=== PATIENT | female | born 1995 | race Caucasian/White ===

== ENCOUNTER 2016-04-16 23:37 | Emergency (ER) | payer OTHER ==
[2016-04-17 00:45] VITALS: BP 115/70; PULSE 71; TEMP 97.8; BMI 23.9
[2016-04-17] MEDS ORDERED: morphine CARPU-JECT 4 MG/1 ML DISP.SYRIN IVPUSH ONE (01:39)
[2016-04-17] MEDS ORDERED: METOCLOPRAMIDE HCL INJECTION 10 MG/2 ML VIAL IVPB ONE (01:39)
[2016-04-17] MEDS ORDERED: SODIUM CHLORIDE 1,000 ML IV STA (01:39)
[2016-04-17] MEDS ORDERED: METOCLOPRAMIDE HCL INJECTION 10 MG/2 ML VIAL ONE (02:00)
[2016-04-17] MEDS ORDERED: morphine CARPU-JECT 4 MG/1 ML DISP.SYRIN ONE (02:00)
--- NOTE | 2016-04-17 02:03 | PDOC ---
History of Present Illness - General Chief Complaint: Pain, Acute Stated Complaint: ABDOMINAL PAIN, NAUSEA Time Seen by Provider: 04/17/16 00:48 History Source: Patient Exam Limitations: No Limitations - History of Present Illness Travel History: No Initial Comments: 04/17/16 01:58 21yo Female patient presents to ED c/o abd pain. Patient states she was recently diagnosed with "bad gallbladder" via Hida Scan 1 month ago. She reports that she was evaluated by Dr. Palmer (GI) 6 weeks ago, and is unsure of the plan going forward, but stated he does not want to do surgery because Im to young. Patient was put on Cipro to see if symptoms resolved. She state prior to symptoms presentation, she had a turkey sandwich around 1pm with no problem then epigastric pain began. She denies any other complaints at this time. Timing/Duration: reports: getting worse Quality: reports: moderate, stabbing Abdominal Pain Onset Location: reports: epigastric Pain Radiation: reports: no radiation Activities at Onset: reports: eating Treatment Prior to Arrive: improves with: analgesics Aggravating Factors: improves with: Eating Alleviating Factors: improves with: Rest Past History - Travel Traveled outside of the country in the last 30 days: No Close contact w/someone who was outside of country & ill: No - Past Medical History Allergies/Adverse Reactions: Allergies Allergy/AdvReac Type Severity Reaction Status Date / Time No Known Allergies Allergy Verified 04/17/16 00:42 Home Medications: Ambulatory Orders Folic Acid 1 mg PO DAILY 04/17/16 LamoTRIgine [LaMICtal] 150 mg PO HS 04/17/16 Lamotrigine [Lamictal] 200 mg PO DAILY 04/17/16 Levetiracetam [Keppra -] 500 mg PO HS 04/17/16 Levetiracetam [Keppra] 250 mg PO DAILY 04/17/16 Methylphenidate HCl [Concerta] 75 mg PO DAILY 04/17/16 Oxycodone HCl/Acetaminophen [Endocet 7.5-325 mg Tablet] 1 each PO Q6H PRN #20 tablet MDD 4 tabs 04/17/16 Topiramate [Topamax] 50 mg PO HS 04/17/16 Seizures: Yes - Psycho/Social/Smoking Cessation Hx Suicidal Ideation: No Smoking History: Never smoked Have you smoked in the past 12 months: No Information on smoking cessation initiated: No Hx Alcohol Use: No Drug/Substance Use Hx: No Abd/GI Specific PMHX - Complaint Specific PMHX Colitis: No Diverticulitis: No Gall Bladder Disease: Yes GERD: No Hepatitis: No Irritable Bowel Synd (IBS): No Pancreatitis: No GI Ulcer Disease: No Review of Systems - Review of Systems Able to Perform ROS?: Yes Is the patient limited Khmer proficient: No Constitutional: No: Chills, Fever HEENTM: No: Ear Pain Respiratory: No: Cough, Stridor, Wheezing Cardiac (ROS): No: Chest Pain, Palpitations, Syncope ABD/GI: Yes: Other (Abd Pain). No: Diarrhea, Nausea, Poor Appetite, Poor Fluid Intake, Vomiting : No: Burning, Dysuria, Frequency, Flank Pain, Hematuria, Pain, Urgency Musculoskeletal: No: Back Pain Integumentary: No: Bruising, Pruritus, Rash Neurological: Yes: Seizure. No: Headache, Numbness, Paresthesia, Tingling, Tremors, Weakness, Dizziness Psychiatric: No: Stressors, Change in Appetite All Other Systems: Reviewed and Negative *Physical Exam - Vital Signs Last Vital Signs Temp Pulse Resp BP Pulse Ox 97.8 F 71 18 115/70 98 04/17/16 00:43 04/17/16 00:43 04/17/16 00:43 04/17/16 00:43 04/17/16 00:43 - Physical Exam General Appearance: Yes: Nourished, Appropriately Dressed. No: Apparent Distress, Mild Distress, Moderate Distress, Severe Distress HEENT: positive: EOMI, GEOVANNY, Normal ENT Inspection, Normal Voice, Symmetrical Neck: positive: Trachea midline, Supple. negative: Stridor, Lymphadenopathy (R) , Lymphadenopathy (L) Respiratory/Chest: positive: Lungs Clear, Normal Breath Sounds. negative: Respiratory Distress, Accessory Muscle Use, Labored Respiration, Rapid RR, Decreased Breath Sounds, Rhonchi, Stridor, Wheezing Cardiovascular: positive: Regular Rhythm, Regular Rate. negative: Edema, JVD, Tachycardia Gastrointestinal/Abdominal: positive: Tender, Flat, Soft, Increased Bowel Sounds , Tenderness (Epigastric tenderness on examination during deep palpation. Neg Strickland's) Musculoskeletal: positive: Normal Inspection. negative: CVA Tenderness Extremity: positive: Normal Capillary Refill, Normal Inspection, Normal Range of Motion. negative: Swelling Integumentary: positive: Normal Color, Dry, Warm. negative: Hives, Rash Neurologic: positive: district ranger II-XII NML intact, Fully Oriented, Alert, Normal Mood/ Affect, Normal Response ED Treatment Course - LABORATORY CBC & Chemistry Diagram: 04/17/16 02:19 04/17/16 03:45 Progress Note - Progress Note Progress Note: Patient reports symptoms improved. Labs show no acute changes. Patient to follow up with GI specialist Wednesday as scheduled. *DC/Admit/Observation/Transfer Diagnosis at time of Disposition: Abdominal pain Qualifiers: Abdominal location: epigastric Qualified Code(s): R10.13 - Epigastric pain - Discharge Dispostion Disposition: HOME Condition at time of disposition: Stable Admit: No - Prescriptions Prescriptions: Oxycodone HCl/Acetaminophen [Endocet 7.5-325 mg Tablet] 1 each PO Q6H PRN #20 tablet MDD 4 tabs PRN Reason: Severe Pain - Patient Instructions Printed Discharge Instructions: DI for Cholecystectomy, DI for HIDA Scan, DI for General Gallbladder Conditions Additional Instructions: FOLLOW UP WITH YOUR GI DOCTOR ON WEDNESDAY SCHEDULED. TAKE MEDICATIONS PRESCRIBED. DO NOT DRIVE, DRINK ALCOHOL, OR OPERATE HEAVY MACHINERY WHILE TAKING ENDOCET. RETURN IF SYMPTOMS WORSEN OR ANY CONCERNS FOR FURTHER EVALUATION. Print Language: PAPUA [place]
[2016-04-17 02:38] LABS: BASOPHIL 0.4 % (0-2.0); MCH 31.5 pg (25.7-33.7); MCHC 33.1 g/dl (32.0-36.0); MEAN CELL VOLUME 95.1 fl (80-96); MEAN PLT VOLUME 9.8 fl (7.5-11.1); PLATELET COUNT 233 K/MM3 (134-434); RDW 12.1 % (11.6-15.6); WHITE BLOOD COUNT 6.5 K/mm3 (4.0-10.0)
[2016-04-17 03:02] LABS: URINE APPEARANCE CLEAR; URINE BILIRUBIN NEGATIVE (NEGATIVE); URINE BLOOD NEGATIVE (NEGATIVE); URINE COLOR STRAW; URINE GLUCOSE (UA) NEGATIVE (NEGATIVE); URINE KETONE NEGATIVE (NEGATIVE); URINE LEUK ESTERASE NEGATIVE (NEGATIVE); URINE NITRITE NEGATIVE (NEGATIVE); URINE PROTEIN NEGATIVE (NEGATIVE); URINE UROBILINOGEN NEGATIVE E.U./dl (0.2-1.0)
--- NOTE | 2016-04-17 03:27 | PDOC ---
[id number] 04/17/16 00:43 04/17/16 00:43 04/17/16 00:43 04/17/16 00:43 04/17/16 00:43 ED Treatment Course - LABORATORY CBC & Chemistry Diagram: 04/17/16 02:19 04/17/16 03:45 - ADDITIONAL ORDERS Additional order review: Laboratory Results 04/17/16 04/17/16 02:19 02:19 Sodium Cancelled Potassium Cancelled Chloride Cancelled Carbon Dioxide Cancelled Anion Gap Cancelled BUN Cancelled Creatinine Cancelled Random Glucose Cancelled Calcium Cancelled Total Bilirubin Cancelled Direct Bilirubin Cancelled AST Cancelled ALT Cancelled Alkaline Phosphatase Cancelled Total Protein Cancelled Albumin Cancelled Total Amylase Cancelled Lipase Cancelled Urine Color Straw Urine Appearance Clear Urine pH 7.0 Ur Specific Golden 1.008 Urine Protein Negative Urine Glucose (UA) Negative Urine Ketones Negative Urine Blood Negative Urine Nitrite Negative Urine Bilirubin Negative Urine Urobilinogen Negative Ur Leukocyte Esterase Negative Urine HCG, Qual Negative 04/17/16 02:19 RBC 4.79 MCV 95.1 MCHC 33.1 RDW 12.1 MPV 9.8 Neutrophils % 52.0 Lymphocytes % 38.9 Monocytes % 7.7 Eosinophils % 1.0 Basophils % 0.4 - Medications Given in the ED: ED Medications Discontinued Medications Generic Name Dose Route Start Last Admin Trade Name Freq PRN Reason Stop Dose Admin Sodium Chloride 1,000 mls @ 1,000 mls/hr 04/17/16 01:39 04/17/16 02:52 Normal Saline - IV 04/17/16 02:38 1,000 mls/hr ASDIR STA Administration Metoclopramide HCl 10 mg 04/17/16 01:39 04/17/16 01:55 Reglan Injection - IVPB 04/17/16 01:40 10 mg ONCE ONE Administration Morphine Sulfate 4 mg 04/17/16 01:39 04/17/16 01:55 Morphine Injection - IVPUSH 04/17/16 01:40 4 mg ONCE ONE Administration Medical Decision Making - Medical Decision Making 04/17/16 03:26 agree with care from SASHA Bryant *DC/Admit/Observation/Transfer Diagnosis at time of Disposition: Abdominal pain - Discharge Dispostion Disposition: HOME - Prescriptions Prescriptions: Oxycodone HCl/Acetaminophen [Endocet 7.5-325 mg Tablet] 1 each PO Q6H PRN #20 tablet MDD 4 tabs PRN Reason: Severe Pain - Referrals Referrals: Phan Freire MD [Primary Care Provider] - - Patient Instructions Printed Discharge Instructions: DI for Cholecystectomy, DI for General Gallbladder Conditions, DI for HIDA Scan Additional Instructions: FOLLOW UP WITH YOUR GI DOCTOR ON WEDNESDAY SCHEDULED. TAKE MEDICATIONS PRESCRIBED. DO NOT DRIVE, DRINK ALCOHOL, OR OPERATE HEAVY MACHINERY WHILE TAKING ENDOCET. RETURN IF SYMPTOMS WORSEN OR ANY CONCERNS FOR FURTHER EVALUATION. Print Language: CZECH
[2016-04-17 04:18] LABS: ALBUMIN 3.7 g/dl (3.4-5.0); BILIRUBIN,DIRECT 0.1 mg/dL (0.0-0.2); BILIRUBIN,TOTAL 0.4 mg/dL (0.2-1.0); CALCIUM 8.3 mg/dL (8.5-10.1); CREATININE 0.5 mg/dL (0.55-1.02); TOT PROT 6.2 g/dl (6.4-8.2)
== END 2016-04-17 04:56 | disposition home or self-care (01) ==
LOC: JER 23:37
PROC: 3E033GC Introduction of Other Therapeutic Substance into Peripheral Vein, Percutaneous Approach (ICD-10-PCS; principal; 2016-04-16)
PROC: 3E033NZ Introduction of Analgesics, Hypnotics, Sedatives into Peripheral Vein, Percutaneous Approach (ICD-10-PCS; 2016-04-16)
PROC: 3E0337Z Introduction of Electrolytic and Water Balance Substance into Peripheral Vein, Percutaneous Approach (ICD-10-PCS; 2016-04-16)
DX: R10.13 Epigastric pain (principal)
CPT/HCPCS: 36415; 80048; 80076; 81003; 84703; 85025; 99282-25

== ENCOUNTER 2016-05-02 20:00 | Day surgery (SDC) | payer OTHER ==
[2016-05-02 19:20] VITALS: BMI 23.3
--- NOTE | 2016-05-02 19:28 | PDOC ---
History of Present Illness - General History Source: Patient Exam Limitations: No Limitations - History of Present Illness Initial Comments: 05/02/16 19:33 The patient is a 21 year old female, sent by Dr. Robles, who presents to the ED with complaints of nausea for one day and abdominal pain since earlier today. The patient reports one episode of vomiting last night. Dr. Robles sent the patient to the ED for admission. Denies fevers or chills. Denies chest pain or shortness of breath. Denies diarrhea. Denies any other symptoms. PAST MEDICAL HISTORY: gallstones (scheduled for a cholecystectomy on 05/22/16), epilepsy (last seizure was 5 years ago) and migraines PAST SURGICAL HISTORY: no significant history FAMILY HISTORY: no pertinent history SOCIAL HISTORY: Pt lives with family and is employed. MEDICATIONS: reviewed ALLERGIES: As per nursing notes General: No fevers or chills, no weakness, no weight loss HEENT: No change in vision. No sore throat,. No ear pain CardioVascular: No chest pain or shortness of breath Respiratory:No cough, or wheezing. Gastrointestinal: + nausea, vomiting, abdominal pain. no diarrhea or constipation, No rectal bleeding Genitourinary: No dysuria, hematuria, or frequency Musculoskeletal: No joint or muscle pain or swelling Neurologic: No headache, vertigo, dizziness or loss of consciousness Psychiatric: nor depression Skin: No rashes or easy bruising Endocrine: no increased thirst or abnormal weight change Allergic: no skin or latex allergy All other systems reviewed and normal General:+ appears mildly discomfortable. Well-nourished well-developed individual HEENT: Throat: Normal, tonsils normal, no erythema or exudate Neck: Supple, no meningeal signs, no lymphadenopathy Eyes::Pupils equal reactive and round, extraocular motion intact Chest: Nontender to palpation Cardiac: S1-S2 normal, regular rate and rhythm, no murmurs rubs or gallops Respiratory: Lungs clear to auscultation bilateral Abdomen: + tenderness on palpation to the epigastric region and right upper quadrant. Soft, nondistended, normal bowel sounds Flank: + mild tenderness in the right upper flank region Extremities: Warm, dry, no cyanosis, clubbing, or edema Skin: No rashes Neuro: Alert and oriented x3, nonfocal exam, grossly intact, normal gait Psych: Normal mood and affect <Trudy Yu - Last Filed: 05/02/16 19:32> - General History Source: Patient Exam Limitations: No Limitations - History of Present Illness Initial Comments: 05/02/16 20:25 A portion of this note was documented by [email or web address] services under my direction. I have reviewed the details of the note, within reason, and agree with the documentation. The case summary and management plan written by me. Assessment and plan: This is a 21-year-old female who is complaining of right upper quadrant pain. Patient is scheduled for removal of her gallbladder in approximately 3 weeks however over the last 44-48 hours she's developed worsening pain and some nausea. Patient called her surgeon who recommended that she come to the emergency room and be admitted for removal of her gallbladder. Patient will be admitted to a [facility] bed Dr. Robles service Discussed case with Dr. Robles who was accepted patient for admission, and will take patient to the OR in the morning 05/02/16 20:30 <Sultana Tinsley I - Last Filed: 05/02/16 20:31> - General Chief Complaint: Nausea Stated Complaint: ABDOMINAL PAIN & NAUSEA Time Seen by Provider: 05/02/16 19:10 Past History <Trudy Yu - Last Filed: 05/02/16 19:32> - Past Medical History GI Disorders: Yes (BILIARY DISEASE) Seizures: Yes - Immunization History Immunization Up to Date: Yes - Psycho/Social/Smoking Cessation Hx Suicidal Ideation: No Smoking History: Never smoked Have you smoked in the past 12 months: No Hx Alcohol Use: No Drug/Substance Use Hx: No Substance Use Type: None <Sultana Tinsley I - Last Filed: 05/02/16 20:31> - Past Medical History Allergies/Adverse Reactions: Allergies Allergy/AdvReac Type Severity Reaction Status Date / Time No Known Allergies Allergy Verified 05/02/16 19:07 Home Medications: Ambulatory Orders Folic Acid 1 mg PO DAILY 04/17/16 LamoTRIgine [LaMICtal] 150 mg PO HS 04/17/16 Lamotrigine [Lamictal] 200 mg PO DAILY 04/17/16 Levetiracetam [Keppra -] 500 mg PO HS 04/17/16 Levetiracetam [Keppra] 250 mg PO DAILY 04/17/16 Methylphenidate HCl [Concerta] 72 mg PO DAILY 04/17/16 Topiramate [Topamax] 50 mg PO HS 04/17/16 Dexlansoprazole [Dexilant] 60 mg PO DAILY 05/02/16 Dicyclomine HCl 10 mg PO BID 05/02/16 Multivits,Ca,Minerals/Iron/FA [One-A-Day Women's] 1 each PO DAILY 05/02/16 Norgestrel-Ethinyl Estradiol [Cryselle-28 Tablet] 1 each PO DAILY 05/02/16 Ondansetron [Zofran -] 4 mg PO TID 05/02/16 Abd/GI Specific PMHX - Complaint Specific PMHX Colitis: No Diverticulitis: No Gall Bladder Disease: Yes GERD: No Hepatitis: No Irritable Bowel Synd (IBS): No Pancreatitis: No GI Ulcer Disease: No <Sultana Tinsley I - Last Filed: 05/02/16 20:31> *Physical Exam - Vital Signs Last Vital Signs Temp Pulse Resp BP Pulse Ox 98.6 F 86 16 125/88 100 05/02/16 19:07 05/02/16 19:07 05/02/16 19:07 05/02/16 19:07 05/02/16 19:07 <Trudy Yu - Last Filed: 05/02/16 19:32> - Vital Signs Last Vital Signs Temp Pulse Resp BP Pulse Ox 98.6 F 86 16 125/88 100 05/02/16 19:07 05/02/16 19:07 05/02/16 19:07 05/02/16 19:07 05/02/16 19:07 <Sultana Tinsley I - Last Filed: 05/02/16 20:31> ED Treatment Course - LABORATORY CBC & Chemistry Diagram: 05/02/16 19:30 05/02/16 19:30 <Sultana Tinsley I - Last Filed: 05/02/16 20:31> *DC/Admit/Observation/Transfer - Attestations Scribe Attestion: 05/02/16 19:33 Documentation prepared by Trudy Yu, acting as medical billing coordinator for Sultana Tinsley MD <Trudy Yu - Last Filed: 05/02/16 19:32> - Discharge Dispostion Admit: Yes <Sultana Tinsley I - Last Filed: 05/02/16 20:31> Diagnosis at time of Disposition: Recurrent biliary colic Abdominal pain Qualifiers: Abdominal location: right lower quadrant Qualified Code(s): R10.31 - Right lower quadrant pain - Discharge Dispostion Disposition: HOME Condition at time of disposition: Good - Referrals Referrals: Phan Freire MD [Primary Care Provider] -
[2016-05-02 19:56] LABS: BASOPHIL 0.3 % (0-2.0); EOSINOPHIL 0.8 % (0-4.5); MCH 31.5 pg (25.7-33.7); MEAN CELL VOLUME 95.3 fl (80-96); MEAN PLT VOLUME 9.9 fl (7.5-11.1); NEUTROPHILS 60.4 % (42.8-82.8); PLATELET COUNT 183 K/MM3 (134-434); RDW 11.1 % (11.6-15.6); WHITE BLOOD COUNT 5.4 K/mm3 (4.0-10.0)
[~2016-05-02 20:00] MED LIST: ONDANSETRON 4 MG/2 ML VIAL IVPUSH ONE; ONDANSETRON 4 MG/2 ML VIAL ONE; SODIUM CHLORIDE 1,000 ML IV SCH; morphine CARPU-JECT 4 MG/1 ML DISP.SYRIN IVPUSH ONE
[2016-05-02 20:01] LABS: INR 1.17 (0.82-1.09); PROTHROMBIN TIME (PATIENT) 12.8 SEC (10.2-13.0)
[2016-05-02 20:05] LABS: ALBUMIN 4.4 g/dl (3.5-5.0); ALK PHOS 42 U/L (32-92); ANION GAP 8 (8-16); BILIRUBIN,TOTAL 0.4 mg/dl (0.2-1.0); CALCIUM 9.4 mg/dl (8.4-10.2); CO2 22 mmol/L (22-28); CREATININE 0.8 mg/dl (0.6-1.3); GLUCOSE,RANDOM 101 mg/dl (74-106); SGOT/AST 22 U/L (10-42); SGPT/ALT 15 U/L (10-40); TOT PROT 7.2 g/dl (6.4-8.3)
[2016-05-02 20:13] LABS: PH,URINE 5.5 (4.5-8); URINE APPEARANCE Clear; URINE BILIRUBIN Negative (NEGATIVE); URINE BLOOD Trace-lysed (NEGATIVE); URINE COLOR YELLOW; URINE GLUCOSE (UA) Negative (NEGATIVE); URINE KETONE Negative (NEGATIVE); URINE LEUK ESTERASE Negative (NEGATIVE); URINE NITRITE Negative (NEGATIVE); URINE PROTEIN Negative (NEGATIVE); URINE UROBILINOGEN 0.2 E.U/dl (0.2-1.0)
[2016-05-02] MEDS ORDERED: morphine CARPU-JECT 10 MG/1 ML DISP.SYRIN ONE (20:21)
[2016-05-02] MEDS ORDERED: ONDANSETRON 4 MG/2 ML VIAL IVPUSH PRN (21:38)
[2016-05-02] MEDS ORDERED: morphine CARPU-JECT 2 MG/1 ML DISP.SYRIN IVPUSH PRN (21:40)
[2016-05-02] MEDS ORDERED: SODIUM CHLORIDE 0.45% 1,000 ML IV SCH (21:45)
[2016-05-02] MEDS ORDERED: TOPIRAMATE 25 MG TABLET (FP) PO SCH (22:00)
[2016-05-02] MEDS ORDERED: levETIRAcetam 500 MG TABLET (FP) PO SCH (22:00)
[2016-05-02] MEDS ORDERED: lamoTRIgine 100 MG TABLET (FP) PO SCH (22:00)
[2016-05-02] MEDS: DICYCLOMINE HCL 10 MG CAPSULE PO SCH (23:31)
[2016-05-03] MEDS ORDERED: ceFAZolin SODIUM 1 GM VIAL ONE ×2 (08:20→09:06)
[2016-05-03] MEDS ORDERED: BUPIVACAINE HCL/PF 2.5 MG/ML - 30 ML VIAL IJ ONE (08:21)
[2016-05-03] MEDS ORDERED: GENTAMICIN SO4 80 MG/2 ML VIAL ONE (08:21)
[2016-05-03] MEDS ORDERED: POLYMYXIN B SULFATE 500,000 UNIT VIAL ONE (08:21)
[2016-05-03] MEDS ORDERED: ONDANSETRON 4 MG/2 ML VIAL ONE (09:06)
[2016-05-03] MEDS ORDERED: PROPOFOL 20 ML ONE (09:06)
[2016-05-03] MEDS ORDERED: DEXAMETHASONE SOD PHOSPHATE 4 MG/1 ML VIAL ONE (09:06)
[2016-05-03] MEDS ORDERED: ROCURONIUM BROMIDE 50 MG/5 ML VIAL ONE (09:07)
[2016-05-03] MEDS ORDERED: MIDAZOLAM HCL 2 MG/2 ML SINGLE DOSE VIAL ONE (09:07)
[2016-05-03] MEDS ORDERED: SUCCINYLCHOLINE CHLORIDE 200 MG/10 ML VIAL ONE (09:07)
[2016-05-03] MEDS ORDERED: CONCERTA 36 MG PO SCH ×2 (10:00)
[2016-05-03] MEDS ORDERED: levETIRAcetam 250 MG TABLET (FP) PO SCH (10:00)
[2016-05-03] MEDS ORDERED: PANTOPRAZOLE 40 MG TABLET (FP) PO SCH (10:00)
[2016-05-03] MEDS ORDERED: MULTIVITAMINS (DAILY MVI) TABLET (FP) PO SCH (10:00)
[2016-05-03] MEDS ORDERED: FOLIC ACID 1 MG TABLET (FP) PO SCH (10:00)
[2016-05-03] MEDS ORDERED: CRYSELLE PO SCH ×2 (10:00)
[2016-05-03] MEDS ORDERED: lamoTRIgine 100 MG TABLET (FP) PO SCH ×2 (10:00→22:00)
[2016-05-03] MEDS ORDERED: KETOROLAC TROMETHAMINE 30 MG/1 ML VIAL ONE (10:12)
[2016-05-03] MEDS ORDERED: NEOSTIGMINE METHYLSULFATE 0.5 MG/ML - 10 ML MDV ONE (10:14)
[2016-05-03] MEDS ORDERED: GLYCOPYRROLATE 0.2 MG/1 ML VIAL ONE ×2 (10:15)
[2016-05-03] MEDS ORDERED: BUPIVACAINE HCL/PF 0.25% (2.5MG/ML) 10 ML VIAL IJ ONE (10:23)
--- NOTE | 2016-05-03 10:37 | OP ---
Operative Note - Note: Operative Date: 05/03/16 Pre-Operative Diagnosis: biliary dyskenesia/chronic cholecystitits Operation: laparoscopic cholecystectomy Post-Operative Diagnosis: Same as Pre-op Surgeon: Wayne Robles Driver'S License Examiner: Tala Rodrigues Anesthesia: General Estimated Blood Loss (mls): 10
[2016-05-03] MEDS ORDERED: oxyCODONE HCL 5 MG TABLET PO PRN (10:42)
--- NOTE | 2016-05-03 10:42 | HP ---
Admitting History and Physical - Admission Chief Complaint: abdominal pain History of Present Illness: 21 yr old female with 6 month history of RUQ pain evaluated by PCP with Ultrasound and Hida scan which did not show stones but also didnot visualize GB Patient continued to experience pain and was referred to GI Dr. Drummond who performed a GB ejection fraction which demonstrated 0% ejection fraction of the GB. Patient was referred for consultation with me and was scheduled for surgery but due to increased severity of pain was evaluated in the ER last pm and admitted History Source: Patient - Past Medical History ...: No - Smoking History Smoking history: Never smoked Have you smoked in the past 12 months: No - Alcohol/Substance Use Hx Alcohol Use: No Home Medications - Allergies Allergies/Adverse Reactions: Allergies Allergy/AdvReac Type Severity Reaction Status Date / Time phenobarbital Allergy Severe Verified 05/03/16 00:06 gabapentin [From Neurontin] AdvReac Intermediate Verified 05/03/16 00:06 - Home Medications Home Medications: Ambulatory Orders Folic Acid 1 mg PO DAILY 04/17/16 LamoTRIgine [LaMICtal] 150 mg PO HS 04/17/16 Lamotrigine [Lamictal] 200 mg PO DAILY 04/17/16 Levetiracetam [Keppra -] 500 mg PO HS 04/17/16 Levetiracetam [Keppra] 250 mg PO DAILY 04/17/16 Methylphenidate HCl [Concerta] 72 mg PO DAILY 04/17/16 Topiramate [Topamax] 50 mg PO HS 04/17/16 Dexlansoprazole [Dexilant] 60 mg PO DAILY 05/02/16 Dicyclomine HCl 10 mg PO BID 05/02/16 Multivits,Ca,Minerals/Iron/FA [One-A-Day Women's] 1 each PO DAILY 05/02/16 Norgestrel-Ethinyl Estradiol [Cryselle-28 Tablet] 1 each PO DAILY 05/02/16 Ondansetron [Zofran -] 4 mg PO TID 05/02/16 Physical Examination Vital Signs: Vital Signs Temperature 98.6 F 05/03/16 06:18 Pulse Rate 76 05/03/16 06:18 Respiratory Rate 18 05/03/16 06:18 Blood Pressure 100/62 05/03/16 06:18 O2 Sat by Pulse Oximetry (%) 100 05/02/16 19:07 Problem List - Problems (1) Abdominal pain Code(s): R10.9 - UNSPECIFIED ABDOMINAL PAIN Qualifiers: Abdominal location: right lower quadrant Qualified Code(s): R10.31 - Right lower quadrant pain (2) Recurrent biliary colic Code(s): K80.20 - CALCULUS OF GALLBLADDER W/O CHOLECYSTITIS W/O OBSTRUCTION Assessment/Plan Admit to Hospital Plan for laparoscopic Cholecystectomy
[2016-05-03] MEDS ORDERED: ACETAMINOPHEN 325 MG TABLET (FP) PO PRN ×2 (10:57→17:21)
[2016-05-03] MEDS: DICYCLOMINE HCL 10 MG CAPSULE PO SCH ×2 (11:07→21:20)
[2016-05-03] MEDS: traMADol HCL 50 MG TABLET PO PRN ×2 (12:20→17:24)
--- NOTE | 2016-05-03 13:50 | OP ---
DATE OF OPERATION: 05/03/2016 PREOPERATIVE DIAGNOSIS: Biliary dyskinesia, biliary colic, and chronic cholecystitis. POSTOPERATIVE DIAGNOSIS: Biliary dyskinesia, biliary colic, and chronic cholecystitis. PROCEDURE: Laparoscopic cholecystectomy. SURGEON: Wayne Robles MD CIGARETTE EXAMINER: MANNY Capps SPECIMEN: Gallbladder. BLEEDING: Minimal. DISPOSITION: Patient tolerated procedure well. This is a 21-year-old female who has presented with recurrent abdominal pain for the past 6 months. Evaluated by GI and was found to have 0% ejection fraction on HIDA and she was referred for surgical evaluation and treatment. She was seen in my office and was scheduled for elective surgery, however, due to increased severity of pain, she presented to the emergency room and was admitted for cholecystectomy. Risks and benefits were discussed with the patient and family and informed consent was obtained. The patient was taken to the operating room, placed in supine position. After induction of general anesthesia, she was prepped and draped in the usual sterile fashion. At this point, after a standard time-out, the procedure was begun with an in the periumbilical space, which is carried through subcutaneous tissues in standard fashion. Standard Judy technique was used to enter the abdominal cavity without difficulty. A 12-mm port was established at this point and insufflation to a pressure of 15 mmHg was accomplished. Next, a total of three 5-mm ports were introduced, 1 in the epigastrium and 2 in the right upper quadrant, all introduced under direct vision. The gallbladder was then identified and the patient was positioned in the reverse Trendelenburg position with the right side slightly rotated. The gallbladder was retracted superiorly and laterally. The infundibulum of the gallbladder was dissected with blunt dissection with the use of a [place] dissector, with cautious use of cautery. The cystic duct and artery were clearly identified and skeletonized. The critical view of safety was clearly established with identification of common bile duct and cystic duct, common bile duct junction, and the cystic artery was clearly within the triangle of Calot, properly identified. At this point in time, time-out was observed to review the anatomy, and then the cystic duct and artery were then carefully double ligated with Endo Clips and then divided with Endo Josette. The gallbladder was then retracted superiorly and hook dissector was to identify all the attachments of the gallbladder to the liver bed. Care was taken to avoid injury to the liver bed or any other adjacent structures. Once the gallbladder was then removed completely off liver bed, final check for hemostasis was performed. Peritoneal cavity was irrigated and suctioned appropriately and the gallbladder was placed in an EndoCatch bag and removed through the umbilical port. The ports were removed under direct vision. The fascia at the umbilical port was closed with 0 Vicryl sutures in interrupted fashion. Marcaine was infiltrated at all incisions, and at this point the skin was closed with 4-0 Monocryl at all incision sites. Dermabond was applied and the patient was returned to the recovery room awake, alert, in stable condition. She tolerated procedure well. Courtney [id number]
[2016-05-03] MEDS ORDERED: morphine CARPU-JECT 2 MG/1 ML DISP.SYRIN IVPUSH PRN (17:20)
[2016-05-03] MEDS ORDERED: ONDANSETRON 4 MG/2 ML VIAL IVPUSH PRN (17:20)
[2016-05-03] MEDS ORDERED: traMADol HCL 50 MG TABLET PO PRN (17:21)
[2016-05-03] MEDS ORDERED: SODIUM CHLORIDE 0.45% 1,000 ML IV SCH (17:30)
[2016-05-03] MEDS ORDERED: SODIUM CHLORIDE 1,000 ML IV SCH (17:30)
[2016-05-03] MEDS ORDERED: levETIRAcetam 500 MG TABLET (FP) PO SCH (22:00)
[2016-05-03] MEDS ORDERED: TOPIRAMATE 25 MG TABLET (FP) PO SCH (22:00)
[2016-05-04 06:04] VITALS: BP 105/59; PULSE 79; TEMP 98.6
--- NOTE | 2016-05-04 07:59 | DS ---
Physical Exam: SUBJECTIVE: Patient seen and examined. Patient states she is doing well. She is experiencing some soreness, but her pain is controlled. She has been tolerating her diet, voiding without issues, and ambulating. She denies F/C/N/ V. OBJECTIVE: Vital Signs Temperature 98.6 F 05/04/16 06:03 Pulse Rate 79 05/04/16 06:03 Respiratory Rate 20 05/04/16 06:03 Blood Pressure 105/59 05/04/16 06:03 O2 Sat by Pulse Oximetry (%) 99 05/04/16 06:03 PHYSICAL EXAM GENERAL: The patient is awake, alert, and fully oriented, in no acute distress. HEAD: Normal with no signs of trauma. EYES: PERRL, extraocular movements intact, sclera anicteric, conjunctiva clear. ENT: Ears normal, nares patent, oropharynx clear without exudates, moist mucous membranes. NECK: Trachea midline, full range of motion, supple. LUNGS: Breath sounds equal, clear to auscultation bilaterally, no wheezes, no crackles, no accessory muscle use. HEART: Regular rate and rhythm, S1, S2 without murmur, rub or gallop. ABDOMEN: Soft, mild tenderness around incisions, nondistended, normoactive bowel sounds, no guarding, no rebound, port site incisions clean/dry/intact. EXTREMITIES: 2+ pulses, warm, well-perfused, no edema. NEUROLOGICAL: Cranial nerves II through XII grossly intact. Normal speech, gait not observed. PSYCH: Normal mood, normal affect. SKIN: Warm, dry, normal turgor, no rashes or lesions noted. LABS CBC,CMP WBC 5.4 K/mm3 (4.0-10.0) 05/02/16 19:30 RBC 4.65 M/mm3 (3.60-5.2) 05/02/16 19:30 Hgb 14.6 GM/dl (10.7-15.3) 05/02/16 19:30 Hct 44.3 % (32.4-45.2) 05/02/16 19:30 MCV 95.3 fl (80-96) 05/02/16 19:30 MCHC 33.0 g/dl (32.0-36.0) 05/02/16 19:30 RDW 11.1 % (11.6-15.6) L 05/02/16 19:30 Plt Count 183 K/MM3 (134-434) 05/02/16 19:30 MPV 9.9 fl (7.5-11.1) 05/02/16 19:30 Neutrophils % 60.4 % (42.8-82.8) 05/02/16 19:30 Lymphocytes % 31.4 % (8-40) 05/02/16 19:30 Monocytes % 7.1 % (3.8-10.2) 05/02/16 19:30 Eosinophils % 0.8 % (0-4.5) 05/02/16 19:30 Basophils % 0.3 % (0-2.0) 05/02/16 19:30 Sodium 137 mmol/L (136-145) 05/02/16 19:30 Potassium 3.8 mmol/L (3.5-5.1) 05/02/16 19:30 Chloride 107 mmol/L (98-107) 05/02/16 19:30 Carbon Dioxide 22 mmol/L (22-28) 05/02/16 19:30 Anion Gap 8 (8-16) 05/02/16 19:30 BUN 6 mg/dl (7-18) L 05/02/16 19:30 Creatinine 0.8 mg/dl (0.6-1.3) 05/02/16 19:30 Creat Clearance w eGFR > 60 (>60) 05/02/16 19:30 Random Glucose 101 mg/dl (74-106) 05/02/16 19:30 Calcium 9.4 mg/dl (8.4-10.2) 05/02/16 19:30 Total Bilirubin 0.4 mg/dl (0.2-1.0) 05/02/16 19:30 AST 22 U/L (10-42) 05/02/16 19:30 ALT 15 U/L (10-40) 05/02/16 19:30 Alkaline Phosphatase 42 U/L (32-92) 05/02/16 19:30 Total Protein 7.2 g/dl (6.4-8.3) 05/02/16 19:30 Albumin 4.4 g/dl (3.5-5.0) 05/02/16 19:30 Lipase 68 U/L (22-51) H 05/02/16 19:30 HOSPITAL COURSE: Date of Admission:05/02/16 Date of Discharge: 05/04/16 The patient presented to the ED on 05/02/16 for nausea and worsening abdominal pain. The patient had a known history of biliary dyskenesia/chronic cholecystitits and was scheduled for a cholecystectomy on 05/22/16. The patient was admitted to the Med-Surg Unit after a laparoscopic cholecystectomy on with Dr. Robles. The operation proceeded without complication, see operative report for complete details. The patient's hospital stay was largely uneventful. Now, POD #1, the patient is tolerating her diet without nausea or vomiting, she is urinating without issue, ambulating, and pain is controlled. The discharge instructions and an oral pain management plan were reviewed with the patient. All questions answered. It was felt the patient was ready for discharge with plan to follow-up with Dr. Robles. Minutes to complete discharge: 30 Visit type - Case Type Case Type: ED Admission - New patient This patient is new to me today: Yes Date on this admission: 05/04/16
[2016-05-04] MEDS: DICYCLOMINE HCL 10 MG CAPSULE PO SCH (09:11)
[2016-05-04] MEDS ORDERED: levETIRAcetam 250 MG TABLET (FP) PO SCH (10:00)
[2016-05-04] MEDS ORDERED: lamoTRIgine 100 MG TABLET (FP) PO SCH (10:00)
[2016-05-04] MEDS ORDERED: MULTIVITAMINS (DAILY MVI) TABLET (FP) PO SCH (10:00)
[2016-05-04] MEDS ORDERED: FOLIC ACID 1 MG TABLET (FP) PO SCH (10:00)
[2016-05-04] MEDS ORDERED: PANTOPRAZOLE 40 MG TABLET (FP) PO SCH (10:00)
--- NOTE | 2016-05-04 15:49 | SURG ---
Surgery Traffic Personnel Supervisor Note Traffic Personnel Supervisor: Tala Rodrigues PA-C Date of Service: 05/03/16 Diagnosis: biliary colic, biliary dyskinesia, chornic cholecystitis Procedure: laparoscopic choleycystectomy I was present for the entirety of the operative procedure. For further detail, please refer to operative report. Visit type - Case Type Case Type: ED Admission - Emergency Emergency Visit: Yes Care time: The patient presented to the Emergency Department on the above date and was hospitalized for further evaluation of their emergent condition. - New patient This patient is new to me today: Yes Date on this admission: 05/04/16 - Critical Care Critical Care patient: No
--- NOTE | 2016-05-04 18:26 | EKG ---
Test Reason : Blood Pressure : / mmHG Vent. Rate : 079 BPM Atrial Rate : 079 BPM P-R Int : 144 ms QRS Dur : 090 ms QT Int : 382 ms P-R-T Axes : 048 025 032 degrees QTc Int : 438 ms POOR DATA QUALITY, INTERPRETATION MAY BE ADVERSELY AFFECTED NORMAL SINUS RHYTHM Minimal RVCD NO PREVIOUS ECGS AVAILABLE Confirmed by MD PERSAUD MARJORY ([id number]) on 05/04/2016 6:25:37 PM Referred By: LIZ Confirmed By:TRENT PERSAUD MD
--- NOTE | 2016-05-05 11:50 | PATH ---
Surgical Pathology Report Patient Name: GRACE DAVENPORT Med. Rec. #: [id number] /Age/Gender: 1995 (Age: 21) / F Account: [id number] Location: [facility] MED-SURG Taken: 05/03/2016 Received: 05/04/2016 Reported: 05/05/2016 Physicians: Wayne Robles M.D. Specimen(s) Received GALLBLADDER Clinical History Cholecystitis Final Diagnosis GALLBLADDER, CHOLECYSTECTOMY: CHRONIC CHOLECYSTITIS AND CHOLESTEROLOSIS. Electronically Signed Hiram Mcnally M.D. Gross Description Received in formalin, labeled "gallbladder," is a 6.7 x 2.5 x 2.5 cm. gallbladder with a 0.2 cm. in length portion of cystic duct attached. The outer surface is fountain green and varies from smooth to shaggy. The lumen contains green, tenacious bile. There are no choleliths identified within the lumen or within the container. The mucosa is dark green and velvety with gold cholesterol stippling. The wall of the gallbladder averages 0.1 cm. in thickness. Conditioning Room Worker sections are submitted in one cassette. /05/04/2016 saudi05/04/2016
== END 2016-05-04 12:38 | disposition home or self-care (01) ==
LOC: UNDOADMOB 20:00 → FASUSAT 20:00 → INTOOBSV 20:00 → FER 20:00 → FM/S 20:00 → FASUSAT 20:00 → FM/S 20:01 → UNDOADMIN 20:38 → FM/S 20:38 → FER 20:48 → FM/S 05-03 16:11 → FASUSAT 05-03 16:11 → FER 05-03 16:11 → FASUSAT 05-03 16:12 → FM/S 05-03 16:14 → FASUSAT 05-03 16:14
PROVIDERS: ATTEND Surgery
PROC: 0FT44ZZ Resection of Gallbladder, Percutaneous Endoscopic Approach (ICD-10-PCS; principal; 2016-05-02)
DX: K81.1 Chronic cholecystitis (principal)
CPT/HCPCS: 36415; 71010-TC; 80053; 81003; 83690; 84703; 85025; 85610; 86850; 86900; 86901; 88304-TC; 93005; 94760; 99283-25

== ENCOUNTER 2016-05-09 10:55 | Emergency (ER) | payer OTHER ==
--- NOTE | 2016-05-09 11:02 | PDOC ---
History of Present Illness - General Chief Complaint: Pain Stated Complaint: ABD PAIN, DIARRHEA, NAUSEA Time Seen by Provider: 05/09/16 10:59 History Source: Patient Exam Limitations: No Limitations - History of Present Illness Initial Comments: 05/09/16 11:01 This is a 21 yo F post op day #6 s/p cholecystectomy for chronic cholecystitis Pt presents again to the ER with a complaint of nausea, vomiting, diarrhea, abdominal pain for the past 2 days She describes her pain as burning and stabbing Located in the epigastric and supra-umbilical area, constant, rated 7/10, no radiation to the back Denies fevers (+) Chills PT has had 1 episode of vomiting daily Pt has had multiple episodes of diarrhea (non bloody, non mucoid) Pt was discharged on pain medications and has not taken any since the surgery Pt has attempted to tolerate PO but this makes her nauseous (including liquids) PAST MEDICAL HISTORY: epilepsy (last seizure was 5 years ago) and migraines PAST SURGICAL HISTORY: Cholecystectomy FAMILY HISTORY: no pertinent history SOCIAL HISTORY: Pt lives with family and is employed. MEDICATIONS: reviewed ALLERGIES: As per nursing notes General: No fevers or chills, no weakness, no weight loss HEENT: No change in vision. No sore throat,. No ear pain CardioVascular: No chest pain or shortness of breath Respiratory:No cough, or wheezing. Gastrointestinal: + nausea, vomiting, abdominal pain. no diarrhea or constipation, No rectal bleeding Genitourinary: No dysuria, hematuria, or frequency Musculoskeletal: No joint or muscle pain or swelling Neurologic: No headache, vertigo, dizziness or loss of consciousness Psychiatric: nor depression Skin: No rashes or easy bruising Endocrine: no increased thirst or abnormal weight change Allergic: no skin or latex allergy All other systems reviewed and normal General:+ appears mildly discomfortable. Well-nourished well-developed individual HEENT: Throat: Normal, tonsils normal, no erythema or exudate Neck: Supple, no meningeal signs, no lymphadenopathy Eyes::Pupils equal reactive and round, extraocular motion intact Chest: Nontender to palpation Cardiac: S1-S2 normal, regular rate and rhythm, no murmurs rubs or gallops Respiratory: Lungs clear to auscultation bilateral Abdomen: + tenderness on palpation to the epigastric region and supraumbilical areas. Soft, nondistended, normal bowel sounds Extremities: Warm, dry, no cyanosis, clubbing, or edema Skin: Well healed, non cellulitic surgical scars Neuro: Alert and oriented x3, nonfocal exam, grossly intact, normal gait Psych: Normal mood and affect 05/09/16 11:03 05/09/16 11:14 05/09/16 11:17 Past History - Past Medical History Allergies/Adverse Reactions: Allergies Allergy/AdvReac Type Severity Reaction Status Date / Time phenobarbital Allergy Severe Verified 05/09/16 10:58 gabapentin [From Neurontin] AdvReac Intermediate Verified 05/09/16 10:58 Home Medications: Ambulatory Orders Folic Acid 1 mg PO DAILY 04/17/16 LamoTRIgine [LaMICtal] 150 mg PO HS 04/17/16 Lamotrigine [Lamictal] 200 mg PO DAILY 04/17/16 Levetiracetam [Keppra -] 500 mg PO HS 04/17/16 Levetiracetam [Keppra] 250 mg PO DAILY 04/17/16 Methylphenidate HCl [Concerta] 72 mg PO DAILY 04/17/16 Topiramate [Topamax] 50 mg PO HS 04/17/16 Multivits,Ca,Minerals/Iron/FA [One-A-Day Women's Tablet] 1 each PO DAILY Norgestrel-Ethinyl Estradiol [Cryselle-28 Tablet] 1 each PO DAILY 05/02/16 Tramadol HCl [Ultram -] 50 mg PO Q4H PRN #20 tablet MDD 6 05/03/16 Anemia: Yes Asthma: No Cancer: No Cardiac Disorders: No CVA: No COPD: No CHF: No Dementia: No Diabetes: No GI Disorders: Yes (BILIARY DISEASE) Disorders: No HTN: No Hypercholesterolemia: No Liver Disease: No Seizures: Yes - Immunization History Immunization Up to Date: Yes - Psycho/Social/Smoking Cessation Hx Suicidal Ideation: No Smoking History: Never smoked Have you smoked in the past 12 months: No Hx Alcohol Use: No Drug/Substance Use Hx: No Substance Use Type: None Hx Substance Use Treatment: No ED Treatment Course - LABORATORY CBC & Chemistry Diagram: 05/09/16 11:15 05/09/16 11:15 Medical Decision Making - Medical Decision Making 05/09/16 11:29 Will do labs Will do CT Will give IVF and Zofran Pt appears dehydrated Will obtain UA once she is able to urinate Given Morphine, Zofran, IVF 05/09/16 12:22 Laboratory Tests 05/09/16 05/09/16 05/09/16 11:15 11:15 11:15 WBC 5.8 Hgb 15.6 H Hct 47.0 H Plt Count 202 Neutrophils % 75.0 D Lymphocytes % 17.6 D BUN 6 L Creatinine 0.9 Total Amylase 56 Lipase 62 H Serum , Qual Negative Pending CT of the abdomen and pelvis 05/09/16 12:28 05/09/16 14:31 CT negative for acute pathology Pt seen in the ER by dr Lubin Will give Reglan and Protonix Tolerated PO challenge Will discharge to home Follow up with Dr Lubin as discussed Return to the ER for any other concerns or complaints Clinical Impression: Abdominal pain *DC/Admit/Observation/Transfer Diagnosis at time of Disposition: Abdominal pain Qualifiers: Abdominal location: unspecified location Qualified Code(s): R10.9 - Unspecified abdominal pain - Discharge Dispostion Disposition: HOME Condition at time of disposition: Stable Admit: No - Patient Instructions Printed Discharge Instructions: DI for Abdominal Pain-Adult Additional Instructions: Karely Thank you for coming in to the ER today Please eat small meals, drink small sips of fluids as needed Please follow up with Dr Lubin as he recommended Return to the ER for any other concerns or complaints
[2016-05-09] MEDS ORDERED: SODIUM CHLORIDE 1,000 ML IV STA (11:03)
[2016-05-09 11:04] VITALS: BMI 22.3
[2016-05-09] MEDS ORDERED: ONDANSETRON 4 MG/2 ML VIAL IVPUSH ONE (11:13)
[2016-05-09] MEDS ORDERED: morphine CARPU-JECT 4 MG/1 ML DISP.SYRIN IVPUSH ONE (11:16)
[2016-05-09 11:27] LABS: BASOPHIL 0.4 % (0-2.0); EOSINOPHIL 1.7 % (0-4.5); MCH 31.3 pg (25.7-33.7); MCHC 33.3 g/dl (32.0-36.0); MEAN CELL VOLUME 94.1 fl (80-96); PLATELET COUNT 202 K/MM3 (134-434); RDW 11.4 % (11.6-15.6); WHITE BLOOD COUNT 5.8 K/mm3 (4.0-10.0)
[2016-05-09] MEDS ORDERED: ONDANSETRON 4 MG/2 ML VIAL ONE (11:37)
[2016-05-09] MEDS ORDERED: morphine CARPU-JECT 10 MG/1 ML DISP.SYRIN ONE (11:37)
[2016-05-09 11:40] LABS: ALBUMIN 4.6 g/dl (3.5-5.0); ALK PHOS 47 U/L (32-92); AMYLASE 56 U/L (25-125); ANION GAP 10 (8-16); BILIRUBIN,TOTAL 0.9 mg/dl (0.2-1.0); CALCIUM 9.9 mg/dl (8.4-10.2); CO2 23 mmol/L (22-28); CREATININE 0.9 mg/dl (0.6-1.3); GLUCOSE,RANDOM 105 mg/dl (74-106); SGOT/AST 21 U/L (10-42); SGPT/ALT 20 U/L (10-40); TOT PROT 7.3 g/dl (6.4-8.3)
[2016-05-09 12:47] LABS: URINE BILIRUBIN Negative (NEGATIVE); URINE BLOOD 3+ (NEGATIVE); URINE COLOR AMBER; URINE GLUCOSE (UA) Negative (NEGATIVE); URINE KETONE Negative (NEGATIVE); URINE LEUK ESTERASE Negative (NEGATIVE); URINE NITRITE Negative (NEGATIVE); URINE PROTEIN Negative (NEGATIVE); URINE UROBILINOGEN 0.2 E.U/dl (0.2-1.0)
[2016-05-09 12:48] LABS: URINE APPEARANCE SL CLOUDY
[2016-05-09 13:26] LABS: URINE RBC 50-80 /hpf (0-3)
[2016-05-09] MEDS ORDERED: SODIUM CHLORIDE 1,000 ML IV ONE (13:43)
[2016-05-09] MEDS ORDERED: PANTOPRAZOLE SODIUM 40 MG in SODIUM CHLORIDE 100 ML IVPB ONE (13:48)
[2016-05-09] MEDS ORDERED: METOCLOPRAMIDE HCL INJECTION 10 MG/2 ML VIAL IVPB ONE (13:48)
[2016-05-09] MEDS ORDERED: PANTOPRAZOLE SODIUM 40 MG VIAL ONE (13:51)
[2016-05-09 14:46] VITALS: BP 118/65; PULSE 92; TEMP 97.6
== END 2016-05-09 14:40 | disposition home or self-care (01) ==
LOC: FER 10:55
PROC: 3E033GC Introduction of Other Therapeutic Substance into Peripheral Vein, Percutaneous Approach (ICD-10-PCS; principal; 2016-05-09)
PROC: 3E033NZ Introduction of Analgesics, Hypnotics, Sedatives into Peripheral Vein, Percutaneous Approach (ICD-10-PCS; 2016-05-09)
PROC: 3E0337Z Introduction of Electrolytic and Water Balance Substance into Peripheral Vein, Percutaneous Approach (ICD-10-PCS; 2016-05-09)
DX: R10.9 Unspecified abdominal pain (principal); D64.9 Anemia, unspecified
CPT/HCPCS: 36415; 74177-TC; 80053; 81003; 81015; 82150; 83690; 84703; 85025; 87077; 87086; 99284-25